=== PATIENT | female | born 1965 | race Caucasian/White ===

== ENCOUNTER 2019-06-08 10:34 | Emergency (ER) | payer MEDICAID ==
[~2019-06-08] VITALS: Ht 152.4 cm; Wt 59.9 kg
[2019-06-08 10:36] VITALS: Ht 152.4 cm; Wt 59.9 kg
[2019-06-08 14:48] LABS: BASOPHIL % 0.5 % (0-2); PLATELET COUNT 341 x10^3mcL (130-400)
[2019-06-08 14:59] LABS: CARBON DIOXIDE 31.8 mmol/L (21-32); CHLORIDE SERUM 102 mmol/L (98-107); CREATININE SERUM 0.7 mg/dL (0.6-1.0); GFR1 > 60 mL/min; GLUCOSE SERUM 242 mg/dL (74-106); POTASSIUM SERUM 4.2 mmol/L (3.5-5.1); SODIUM SERUM 141 mmol/L (136-145)
[2019-06-08 15:12] LABS: ALBUMIN 3.6 g/dL (3.4-5.0); ALKALINE PHOSPHATASE 158 U/L (46-116); ALT/SGPT 25 U/L (14-59); AST/SGOT 19 U/L (15-37); BILIRUBIN TOTAL 0.13 mg/dL (0.20-1.00); HDL CHOLESTEROL 50 mg/dL (40-60); LIPASE 81 IU/L (73-393); MAGNESIUM 1.8 mg/dL (1.8-2.4); T4(THYROXINE) 7.9 ug/dL (4.7-13.3); TOTAL PROTEIN, SERUM 7.8 g/dL (6.4-8.2)
[2019-06-08 15:13] LABS: CHOLESTEROL 214 mg/dL (<200)
[2019-06-08 15:30] LABS: microscopic required? YES; urine erythrocyte TRACE (NEGATIVE)
[2019-06-08 15:39] LABS: AMPHETAMINE QUAL UR NONE DETECTED (See below)
[2019-06-08 18:06] VITALS: BP 126/63
== END 2019-06-08 18:06 | disposition home or self-care (01) ==
LOC: ED 10:34
PROVIDERS: Emergency Medicine
DX: R42 Dizziness and giddiness (principal); E11.9 Type 2 diabetes mellitus without complications; I10 Essential (primary) hypertension; E78.00 Pure hypercholesterolemia, unspecified; Z98.890 Other specified postprocedural states
CPT/HCPCS: 82962; J7030; J8597; Q0092

== ENCOUNTER 2019-09-21 11:57 | Inpatient (IN) | payer MEDICAID ==
[~2019-09-21] VITALS: Ht 152.4 cm; Wt 57.6 kg
[2019-09-21 12:44] VITALS: Ht 152.4 cm; Wt 57.6 kg
[2019-09-21 13:24] LABS: BASOPHIL % 0.3 % (0-2); PLATELET COUNT 332 x10^3mcL (130-400); RED CELL DISTRIBUTION WIDTH 13.4 % (11.5-14.5)
[2019-09-21 13:37] LABS: CALCIUM 9.1 mg/dL (8.5-10.1); CARBON DIOXIDE 31.3 mmol/L (21-32); CHLORIDE SERUM 99 mmol/L (98-107); CREATININE SERUM 0.7 mg/dL (0.6-1.0); GFR1 > 60 mL/min; GLUCOSE SERUM 207 mg/dL (74-106); POTASSIUM SERUM 3.8 mmol/L (3.5-5.1); SODIUM SERUM 134 mmol/L (136-145)
[2019-09-21 13:42] LABS: ALBUMIN 3.8 g/dL (3.4-5.0); ALKALINE PHOSPHATASE 131 U/L (46-116); ALT/SGPT 49 U/L (14-59); AST/SGOT 34 U/L (15-37); BILIRUBIN TOTAL 0.3 mg/dL (0.20-1.00); LIPASE 138 IU/L (73-393); TOTAL PROTEIN, SERUM 8.3 g/dL (6.4-8.2)
[2019-09-21 14:53] LABS: microscopic required? NO
[2019-09-21 15:04] LABS: urine erythrocyte NEGATIVE (NEGATIVE)
[2019-09-21 20:00] VITALS: BP 115/50
[2019-09-21 21:14] VITALS: BP 115/50; BP 128/86
[2019-09-22 06:09] VITALS: BP 107/54
[2019-09-22 06:48] LABS: BASOPHIL % 0.4 % (0-2); PLATELET COUNT 273 x10^3mcL (130-400); RED CELL DISTRIBUTION WIDTH 13.8 % (11.5-14.5)
[2019-09-22 07:16] LABS: CALCIUM 8.5 mg/dL (8.5-10.1); CARBON DIOXIDE 27.1 mmol/L (21-32); CHLORIDE SERUM 105 mmol/L (98-107); CREATININE SERUM 0.7 mg/dL (0.6-1.0); GFR1 > 60 mL/min; GLUCOSE SERUM 168 mg/dL (74-106); POTASSIUM SERUM 4.1 mmol/L (3.5-5.1); SODIUM SERUM 141 mmol/L (136-145)
[2019-09-22 09:42] VITALS: BP 109/62
[2019-09-22 13:46] VITALS: BP 106/62
[2019-09-22 16:18] VITALS: BP 107/60
[2019-09-22 20:26] VITALS: BP 119/57
[2019-09-23 05:38] VITALS: BP 111/61
[2019-09-23 08:28] VITALS: BP 124/61
[2019-09-23 10:53] VITALS: BP 117/64
[2019-09-23 11:46] VITALS: BP 114/64
[2019-09-23] MEDS ORDERED: GLUCOPHAGE500 MG PO (12:14)
[2019-09-23] MEDS ORDERED: GLUCOTROL10 MG PO (12:14)
[2019-09-23] MEDS ORDERED: BENAZEPRIL HCL PO (12:15)
[2019-09-23] MEDS ORDERED: TRUE METRIX GL1 EACH MC (12:15)
[2019-09-23] MEDS ORDERED: LOP600 PO (12:15)
[2019-09-23] MEDS ORDERED: ONDANSETRON4 M3 PO (12:17)
[2019-09-23] MEDS ORDERED: MOTION RELIEF25 MG PO (12:18)
[2019-09-23] MEDS ORDERED: LOSARTAN POTASS1 TAB PO (12:19)
[2019-09-23] MEDS ORDERED: JANUMET PO (12:19)
[2019-09-23] MEDS ORDERED: CLARITIN10 MG PO (12:20)
[2019-09-23] MEDS ORDERED: IBU600 M2 PO (12:21)
[2019-09-23 16:23] VITALS: BP 136/70
[2019-09-23 20:38] VITALS: BP 124/68
[2019-09-24 04:29] VITALS: BP 133/71
[2019-09-24 06:46] LABS: CALCIUM 8.8 mg/dL (8.5-10.1); CARBON DIOXIDE 25.3 mmol/L (21-32); CHLORIDE SERUM 106 mmol/L (98-107); CREATININE SERUM 0.6 mg/dL (0.6-1.0); GFR1 > 60 mL/min; GLUCOSE SERUM 126 mg/dL (74-106); POTASSIUM SERUM 3.7 mmol/L (3.5-5.1); SODIUM SERUM 141 mmol/L (136-145)
[2019-09-24 08:51] VITALS: BP 147/68
[2019-09-24 09:11] LABS: BASOPHIL % 0.6 % (0-2); PLATELET COUNT 273 x10^3mcL (130-400); RED CELL DISTRIBUTION WIDTH 13.7 % (11.5-14.5)
[2019-09-24 12:28] VITALS: BP 133/66
[2019-09-24] MEDS ORDERED: LEVAQUIN500 M1 PO (15:17)
[2019-09-24] MEDS ORDERED: LOMOTIL1 TAB PO (15:18)
[2019-09-24 15:36] VITALS: BP 133/66
[2019-09-24 17:12] VITALS: BP 138/64
== END 2019-09-24 17:24 | disposition home or self-care (01) | DRG 244 ==
LOC: ED 11:57 → MU 18:35
PROVIDERS: Emergency Medicine; ADMIT Internal Medicine Pulmonary Disease
DX: K57.33 Diverticulitis of large intestine without perforation or abscess with bleeding (principal); E11.65 Type 2 diabetes mellitus with hyperglycemia; I11.9 Hypertensive heart disease without heart failure; I25.10 Atherosclerotic heart disease of native coronary artery without angina pectoris; K52.9 Noninfective gastroenteritis and colitis, unspecified; E11.9 Type 2 diabetes mellitus without complications; E78.5 Hyperlipidemia, unspecified; Z68.24 Body mass index [BMI] 24.0-24.9, adult; Z79.84 Long term (current) use of oral hypoglycemic drugs
CPT/HCPCS: 82962; 87046; 87046-59; G0378; J1815; J1956; J2543; J3490; J7030